=== PATIENT | female | born 1945 | race Caucasian/White ===

== ENCOUNTER 2020-06-27 05:20 | Inpatient (IN) | payer MEDICARE, OTHER ==
[~2020-06-27 05:20] MED LIST: ASPIRIN EC81 MG PO; ATENOLOL25 MG PO; HCTZ12.5 MG PO; IRON325 M1 PO; PRILOSEC20 MG PO; PROZAC20 MG PO; VITAMIN D31000 UNI1 PO; ZOCOR10 MG PO
[2020-06-27] MEDS ORDERED: PERCOCET 5-3251 EACH PO (08:00)
--- NOTE | 2020-06-27 18:22 | NUR ---
1730 PATIENT HAS NOT VOIDED SINCE ARRIVING TO FLOOR FROM SURGERY AT 1000. BLADDER SCAR PERFORMED AND SHOWS 364 ML. THIS RN NOTIFIED DR LE AND ORDERD STRAIGHT CATH ONE TIME AND TO BLADDER SCAN PATIENT AGAIN IN 8 HOURS. STRAIGHT CATH PERFORMED, 300 ML NOTED.
[2020-06-28 02:41] LABS: BILIRUBIN NEGATIVE (NEGATIVE); BLOOD 2+ Ery/uL (NEGATIVE); CLARITY HAZY (CLEAR); COLOR YELLOW (YELLOW); GLUCOSE (U) NORMAL (NORMAL); LEUKOCYTES NEGATIVE Leu/uL (NEGATIVE); NITRITE NEGATIVE (NEGATIVE); PROTEIN TRACE (LOW) mg/dL (NEGATIVE); SPECIFIC GRAVITY >=1.030 (1.001-1.030); UROBILINOGEN 0.2 mg/dL (0.2-1.0); pH 5.5 (5.0-9.0)
[2020-06-28 02:51] LABS: BACTERIA TRACE; URINARY RBC TNTC; URINARY WBC RARE
[2020-06-28 02:52] LABS: MUCOUS TRACE
[2020-06-28 06:34] LABS: BASOPHIL 0.4 % (0-2); EOSINOPHIL 2.3 % (0-7); HCT 37.9 % (37.0-47.0); HGB 11.9 g/dl (12.5-16.0); LYMPHOCYTE 19.6 % (15-48); MCH 29.8 pg (25.0-31.0); MCHC 31.4 g/dL (32.0-36.0); MONOCYTE 11.9 % (0-12); MPV 9.4 fL (6.0-9.5); NEUTROPHIL 65.4 % (41-80); NRBC 0; PLT 169 K/uL (150-400); RBC 3.99 M/uL (4.20-5.40); RDW 13.2 % (11.5-14.0)
[2020-06-28 06:49] LABS: BUN/CREAT RATIO (CALC) 19.5 RATIO; CREATININE 0.82 mg/dL (0.51-0.95); POTASSIUM 3.8 mmol/L (3.5-5.1)
--- NOTE | 2020-06-28 15:52 | NUR ---
PT. INITIALLY CHOSE [facility], BUT THEY CANNOT ACCEPT HER DUE TO STAFF SHORTAGE. PT. THEN CHOSE [facility] HH REFERRAL SENT THROUGH [facility]. PT. HAS A ROLLING WALKER, 08/21 AND SHOWER CHAIR. SHE WILL RETURN HOME WITH HER SPOUSE.
[2020-06-29 06:23] LABS: BASOPHIL 0.6 % (0-2); EOSINOPHIL 3.4 % (0-7); HCT 35.7 % (37.0-47.0); HGB 11.3 g/dl (12.5-16.0); LYMPHOCYTE 17.6 % (15-48); MCH 29.8 pg (25.0-31.0); MCHC 31.7 g/dL (32.0-36.0); MCV 94.2 fL (78.0-100.0); MONOCYTE 12.5 % (0-12); MPV 9.4 fL (6.0-9.5); NEUTROPHIL 65.4 % (41-80); NRBC 0; PLT 155 K/uL (150-400); RBC 3.79 M/uL (4.20-5.40); RDW 13.2 % (11.5-14.0); WBC 6.5 K/uL (4.0-10.5)
[2020-06-29 06:57] LABS: BUN/CREAT RATIO (CALC) 18.5 RATIO; CREATININE 0.65 mg/dL (0.51-0.95); POTASSIUM 3.5 mmol/L (3.5-5.1)
[2020-06-30 06:05] LABS: BASOPHIL 0.6 % (0-2); EOSINOPHIL 3.3 % (0-7); HCT 35.7 % (37.0-47.0); HGB 11.4 g/dl (12.5-16.0); LYMPHOCYTE 25.1 % (15-48); MCH 29.8 pg (25.0-31.0); MCHC 31.9 g/dL (32.0-36.0); MCV 93.5 fL (78.0-100.0); MONOCYTE 11.3 % (0-12); MPV 9.4 fL (6.0-9.5); NEUTROPHIL 59.2 % (41-80); NRBC 0; PLT 161 K/uL (150-400); RBC 3.82 M/uL (4.20-5.40); RDW 13.1 % (11.5-14.0); WBC 6.3 K/uL (4.0-10.5)
--- NOTE | 2020-06-30 10:52 | NUR ---
PT. TO D/C HOME WITH SPOUSE. PT. REQUESTED [facility]. SHE REQUESTED HER OXYGEN AND ROLLING WALKER FROM [facility]. O2 AND WALKER HAVE BEEN DELIVERED. AFFLIATIONS EXPLAINED. HER NURSE HUEY ADVISED OF PLAN.
--- NOTE | 2020-06-30 14:05 | NUR ---
ADVISED BY DR. LE THAT PT. WILL NOT DC TODAY. PLANNING FOR D/C FRIDAY. ADVISED LILLIE W/GUICHO OF ANTICIPATED D/C PLAN FOR FRIDAY. LILLIE STATED THAT SHE WILL CHECK WITH THE HOSPITAL FRIDAY TO MAKE SURE PT HAS D/C. IF PT. D/C BEFORE SHE CALLS CALL [phone]. ADVISED HER NURSEHUEY OF THIS INFORMATION.
[2020-07-01] MEDS ORDERED: K-DUR20 MEQ PO (12:14)
[2020-07-01] MEDS ORDERED: LASIX20 MG PO (12:14)
[2020-07-01] MEDS ORDERED: VENTOLIN HFA IN18 GM INH (12:14)
[2020-07-01] MEDS ORDERED: FLOMAX0.4 MG PO (12:16)
[2020-07-01] MEDS ORDERED: ASPIRIN EC81 MG PO (12:18)
== END 2020-07-01 11:52 | disposition home or self-care (01) | DRG 470 ==
LOC: FMS 05:20
PROVIDERS: Nurse Practitioner; Nurse Practitioner Adult Health; ADMIT Orthopaedic Surgery
PROC: 0SRD0J9 Replacement of Left Knee Joint with Synthetic Substitute, Cemented, Open Approach (ICD-10-PCS; principal; 2020-06-27 07:00)
PROC: 0MNP0ZZ Release Left Knee Bursa and Ligament, Open Approach (ICD-10-PCS; principal; 2020-06-27 07:00)
PROC: 8E0YXBZ Computer Assisted Procedure of Lower Extremity (ICD-10-PCS; principal; 2020-06-27 07:00)
DX: M17.12 Unilateral primary osteoarthritis, left knee (principal); S83.012A Lateral subluxation of left patella, initial encounter; I10 Essential (primary) hypertension; Z20.828 Contact with and (suspected) exposure to other viral communicable diseases; F41.9 Anxiety disorder, unspecified; E78.5 Hyperlipidemia, unspecified; R33.9 Retention of urine, unspecified; R09.02 Hypoxemia; Z79.82 Long term (current) use of aspirin; Z79.899 Other long term (current) drug therapy
CPT/HCPCS: 36415; 71045; 73560; 80048; 81001; 85025; 86850; 86900; 86901; 94010; 94640; 94760; 94762; 97110; 97116; 97162; 97166; 97530; 97530-GP; 97535; C1713; C1776; J0171; J0697; J1170; J1885; J1940; J2250; J2270; J2704; J2795; J3010; J7120; U0002